=== PATIENT | female | born 1990 | race Hispanic/Latino ===

== ENCOUNTER → 2019-09-16 | Outpatient (CLI) | payer OTHER ==
[2019-09-17 10:06] LABS: RAPID PLASMA REAGIN NONREACTIVE (NONREACTIVE)
== END | disposition home or self-care (01) ==
LOC: LAB 11:29
PROVIDERS: ATTEND Family Medicine
DX: Z20.2 Contact with and (suspected) exposure to infections with a predominantly sexual mode of transmission (principal)
CPT/HCPCS: 36415; 86592; 86695; 86701; 87390; 87486; 87797

== ENCOUNTER 2023-07-30 06:25 | Day surgery (SDC) | payer OTHER ==
[2023-07-30] VITALS (10 sets, daily range): BP systolic 96–141; BP diastolic 54–73; PULSE 67–105; RESP 15–17
[~2023-07-30] VITALS: Ht 162.6 cm; Wt 96.2 kg
[~2023-07-30 06:25] MED LIST: CALC-129 PO; CHOL500045 PO; FAMO40TA75 PO; FOLI-103 PO; VITA1CAP85 PO
[2023-07-30] MEDS: 0.9%NACL 1000ML 1,000 ML IV ONE (07:19)
[2023-07-30] MEDS ORDERED: PROPOFOL 10 MG/ML 20ML VIAL IV ONE (09:13)
== END 2023-07-30 10:30 | disposition home or self-care (01) ==
LOC: ENDO 06:25 → DAH 06:25 → ENDO 10:30
PROVIDERS: ATTEND Internal Medicine Gastroenterology
DX: R12 Heartburn (principal); K29.50 Unspecified chronic gastritis without bleeding; K22.89 Other specified disease of esophagus; K21.00 Gastro-esophageal reflux disease with esophagitis, without bleeding; F41.8 Other specified anxiety disorders; E66.09 Other obesity due to excess calories; Z68.36 Body mass index [BMI] 36.0-36.9, adult; Z82.5 Family history of asthma and other chronic lower respiratory diseases; Z82.49 Family history of ischemic heart disease and other diseases of the circulatory system; Z72.89 Other problems related to lifestyle; Z87.891 Personal history of nicotine dependence; Z98.890 Other specified postprocedural states; Z98.891 History of uterine scar from previous surgery
CPT/HCPCS: 81025 ×2; 43239; J7030 ×2; J2704; A4620; A4215; A4223; A7002; A4222; A4221; A4663; A4606; J3490

== ENCOUNTER 2024-08-11 08:06 | Day surgery (SDC) | payer OTHER ==
[2024-08-11] VITALS (10 sets, daily range): BP systolic 118–132; BP diastolic 63–89; PULSE 77–98; RESP 15–18; TEMP 97.3–98.1
[~2024-08-11] VITALS: Ht 162.6 cm; Wt 95.3 kg
[~2024-08-11 08:06] MED LIST changes: +BACI1TAB PO; +BUPR-93 PO; +CYCL10TA16 PO; +PANT40TA55 PO
[2024-08-11] MEDS ORDERED: 0.9%NACL 1000ML 1,000 ML IV ONE (08:48)
[2024-08-11] MEDS ORDERED: proPOFol 10 MG/ML 20ML VIAL IV ONE (10:51)
== END 2024-08-11 11:50 | disposition home or self-care (01) ==
LOC: ENDO 08:06 → DAH 08:06 → ENDO 11:50
PROVIDERS: ATTEND Internal Medicine Gastroenterology
DX: R12 Heartburn (principal); K29.50 Unspecified chronic gastritis without bleeding; K21.00 Gastro-esophageal reflux disease with esophagitis, without bleeding; K21.9 Gastro-esophageal reflux disease without esophagitis; K64.9 Unspecified hemorrhoids; K59.00 Constipation, unspecified; E66.09 Other obesity due to excess calories; F41.9 Anxiety disorder, unspecified; Z68.36 Body mass index [BMI] 36.0-36.9, adult; Z79.899 Other long term (current) drug therapy
CPT/HCPCS: 81025; 43239; J7030; J2704; A4620; A4215 ×2; A4223; A4222; A4221; A4663; A4606; J3490